=== PATIENT | male | born 1985 | race Caucasian/White ===

== ENCOUNTER → 2016-11-30 | Outpatient (CLI) | payer OTHER ==
--- NOTE | 2016-11-30 13:30 | CT ---
Procedure: CT ABDOMEN PELVIS WITHOUT THEN WITH IV CONTRAST Exam date: 11/30/2016 1:03 PM CDT Ordering Provider: EMMA RIVERA Clinical Indication: EPIGASTRIC PAIN Comparison: None Technique: Multiple axial helical CT images of the abdomen and pelvis were obtained first without and then with IV contrast. No oral contrast given. Coronal and sagittal reformatted images were also obtained. Findings: Lung bases are clear and the heart apex within normal limits. No inferior mediastinal abnormality. Inferior osseous structures of the thorax are unremarkable. The solid abdominal viscera are unremarkable. Stomach, small and large bowel are within normal limits. No peritoneal or retroperitoneal masses or adenopathy. No free fluid or pneumoperitoneum. The appendix is unremarkable. Urinary bladder is unremarkable. No pelvic masses or adenopathy seen. Perirectal fat planes are preserved. Osseous structures of the abdomen and pelvis are nonacute. Impression: Unremarkable CT of the abdomen and pelvis with and without IV contrast. Electronically signed by: Dada Burgos MD 11/30/2016 1:29 PM CDT
== END | disposition home or self-care (01) ==
LOC: CT 12:42
PROVIDERS: ATTEND Family Medicine
DX: R10.13 Epigastric pain (principal)